=== PATIENT | female | born 1980 | race Hispanic/Latino ===

== ENCOUNTER 2017-01-06 18:01 | Observation (INO) | payer OTHER ==
[2017-01-06] MEDS ORDERED: Sodium Chloride 0.9% 1,000 ML IV ONE (18:14)
--- NOTE | 2017-01-06 18:23 | EDM.PDOC ---
ED HPI Skin/Rash - General Chief Complaint: Skin Complaint Stated Complaint: HAD C SECTION/ INFECTED Time Seen by Provider: 01/06/17 18:15 Source: Reports: Patient History Limitations: Reports: No limitations - History of Present Illness INITIAL COMMENTS - FREE TEXT/NARRATIVE: HISTORY AND PHYSICAL: History of present illness: [Patient comes to the emergency room complaining of purulent discharge, warmth and increased pain to site. She delivered via one live fetus on December [address] Angel at [facility]. She first noticed symptoms 3 days ago which have gradually worsened. She consulted with her handle rounder operator, Dr. Angel, who is in [place], and he recommended she be evaluated in the emergency room. She has had a pad against her incision which has been collecting green colored and bloody discharge. She denies fevers, nausea, vomiting. Occasional chills. She is breast-feeding and bottlefeeding with formula.] Review of systems: As per history of present illness and below otherwise all systems reviewed and negative. Past medical history: As per history of present illness and as reviewed below otherwise noncontributory. Surgical history: As per history of present illness and as reviewed below otherwise noncontributory. Social history: No reported history of drug or alcohol abuse. Family history: As per history of present illness and as reviewed below otherwise noncontributory. Physical exam: HEENT: Atraumatic, normocephalic. Lungs: Clear to auscultation, breath sounds equal bilaterally. Heart: S1S2, regular rate and rhythm. Abdomen: Morbidly obese. Normoactive bowel sounds. Abdomen is soft. Has a large abdominal pannus which hangs over her incision. Left-sided incision is partially open and draining yellow bloody colored discharge. Malodorous. Hematoma appreciated. 1/2 inch of erythema surrounding incision site. Swab of wound is taken for culture. Genitourinary: Deferred. Rectal: Deferred. Extremities: Atraumatic.Neurovascular unremarkable. Neuro: Awake, alert, oriented. Motor and sensory unremarkable throughout. Exam nonfocal. Diagnostics: [CBC, CMP, wound culture] Therapeutics: [IV normal saline 1 L, vancomycin 1 gram, Zosyn 4.5 g IV] Impression: [Abdominal cellulitis status post ] Plan: [Patient's condition is discussed with the hospitalist. She will be admitted under the care of Dr. Gunderson for observation. Patient in agreement with plan of questions are answered and concerns are addressed.] Definitive disposition and diagnosis as appropriate pending reevaluation and review of above. - Related Data Allergies Allergy/AdvReac Type Severity Reaction Status Date / Time No Known Allergies Allergy Verified 01/06/17 18:12 Home Meds: Ambulatory Orders Medication Instructions Recorded Confirmed Ibuprofen 01/06/17 Insulin Lispro [HumaLOG] 01/06/17 Labetalol [Normodyne] 01/06/17 oxyCODONE HCl/Acetaminophen 01/06/17 [Percocet 5-325 mg Tablet] ED ROS GENERAL - Review of Systems Review Of Systems: ROS reveals no pertinent complaints other than HPI. ED EXAM, SKIN/RASH Exam: See Below Course - Vital Signs Last Recorded V/S: Last Vital Signs Temp 98.7 F 01/06/17 20:09 Pulse 57 L 01/06/17 20:09 Resp 18 01/06/17 20:09 BP 152/66 H 01/06/17 20:09 Pulse Ox 98 01/06/17 20:09 - Orders/Labs/Meds Orders: Active Orders 24 hr Category Date Time Status Abdomen Pelvis w Cont [CT] Stat Exams 01/06/17 18:53 Taken Piperacillin/Tazobactam [Piperacil-Tazobact] 4.5 gm Med 01/06/17 20:57 Active Sodium Chloride 0.9% [Normal Saline] 100 ml IV ONETIME Vancomycin [Vancocin] 1 gm Med 01/06/17 20:50 Active Sodium Chloride 0.9% [Normal Saline] 250 ml IV ONETIME Medication Orders Vancomycin HCl 1 gm/ Sodium (Chloride) 250 mls @ 250 mls/hr IV ONETIME ONE Stop: 01/06/17 21:49 Piperacillin Sod/Tazobactam (Sod 4.5 gm/ Sodium Chloride) 100 mls @ 100 mls/hr IV ONETIME ONE Stop: 01/06/17 21:56 Last Admin: 01/06/17 21:06 Dose: 100 mls/hr Labs: Laboratory Tests 01/06/17 01/06/17 Range/Units 18:20 18:20 WBC 10.21 (4.0-11.0) K/uL RBC 3.52 L (4.30-5.90) M/uL Hgb 9.3 L (12.0-16.0) g/dL Hct 29.6 L (36.0-46.0) % MCV 84.1 (80.0-98.0) fL MCH 26.4 L (27.0-32.0) pg MCHC 31.4 (31.0-37.0) g/dL RDW Std Deviation 48.2 (28.0-62.0) fl RDW Coeff of Silvia 16 H (11.0-15.0) % Plt Count 411 H (150-400) K/uL MPV 9.80 (7.40-12.00) fL Add Manual Diff YES Neutrophils % (Manual) 56 (48.0-80.0) % Band Neutrophils % 13 % Lymphocytes % (Manual) 20 (16.0-40.0) % Monocytes % (Manual) 8 (0.0-15.0) % Eosinophils % (Manual) 2 (0.0-7.0) % Basophils % (Manual) 1 (0.0-1.5) % Nucleated RBC % 0.0 /100WBC Absolute Seg Neuts 5.7 Band Neutrophils # 1.3 Lymphocytes # (Manual) 2.0 Monocytes # (Manual) 0.8 Eosinophils # (Manual) 0.2 Basophils # (Manual) 0 Nucleated RBCs # 0 K/uL Sodium 143 (136-146) mmol/L Potassium 4.0 (3.5-5.1) mmol/L Chloride 112 H (98-110) mmol/L Carbon Dioxide 22 (21-31) mmol/L BUN 16 (6.0-23.0) mg/dL Creatinine 0.8 (0.6-1.5) mg/dL Est Cr Clr Drug Dosing 96.18 mL/min Estimated GFR (MDRD) > 60.0 ml/min Glucose 73 (60-110) mg/dL Calcium 8.6 L (8.8-10.8) mg/dL Total Bilirubin 0.8 (0.1-1.5) mg/dL AST 21 (5-40) IU/L ALT 39 (8-54) IU/L Alkaline Phosphatase 85 (40-150) Total Protein 6.4 (6.0-8.0) g/dL Albumin 3.1 L (3.5-5.0) g/dL Globulin 3.3 (2.0-3.5) g/dL Albumin/Globulin Ratio 0.9 L (1.3-2.8) Meds: Medications Generic Name Dose Route Start Last Admin Trade Name Negrita PRN Reason Stop Dose Admin Vancomycin HCl 1 gm/ Sodium 250 mls @ 250 mls/hr 01/06/17 20:50 Chloride IV 01/06/17 21:49 ONETIME ONE Piperacillin Sod/Tazobactam 100 mls @ 100 mls/hr 01/06/17 20:57 01/06/17 21: 06 Sod 4.5 gm/ Sodium Chloride IV 01/06/17 21:56 100 mls/hr ONETIME ONE Administration Discontinued Medications Generic Name Dose Route Start Last Admin Trade Name Freq PRN Reason Stop Dose Admin Sodium Chloride 1,000 mls @ 999 mls/hr 01/06/17 18:14 01/06/17 18:22 Normal Saline IV 01/06/17 19:14 999 mls/hr STAT ONE Administration Departure - Departure Time of Disposition: 21:20 Disposition: Refer to Observation Condition: good Clinical Impression: Cellulitis Qualifiers: Site of cellulitis: other site Qualified Code(s): L03.818 - Cellulitis of other sites - My Orders Last 24 Hours: My Active Orders 01/06/17 18:53 Abdomen Pelvis w Cont [CT] Stat 01/06/17 20:50 Vancomycin [Vancocin] 1 gm Sodium Chloride 0.9% [Normal Saline] 250 ml IV ONETIME 01/06/17 20:57 Piperacillin/Tazobactam [Piperacil-Tazobact] 4.5 gm Sodium Chloride 0.9% [ Normal Saline] 100 ml IV ONETIME - Assessment/Plan Last 24 Hours: My Active Orders 01/06/17 18:53 Abdomen Pelvis w Cont [CT] Stat 01/06/17 20:50 Vancomycin [Vancocin] 1 gm Sodium Chloride 0.9% [Normal Saline] 250 ml IV ONETIME 01/06/17 20:57 Piperacillin/Tazobactam [Piperacil-Tazobact] 4.5 gm Sodium Chloride 0.9% [ Normal Saline] 100 ml IV ONETIME
[2017-01-06 18:47] LABS: CHLORIDE,CL 112 mmol/L (98-110); SODIUM,NA 143 mmol/L (136-146)
[2017-01-06] MEDS ORDERED: Piperacillin/Tazobactam 4.5 GM in Sodium Chloride 0.9% 100 ML IV ONE (20:57)
[2017-01-06] MEDS: Sodium Chloride 0.45% 1,000 ML IV SCH (22:00)
[2017-01-06] MEDS ORDERED: Morphine 2 MG/ML Syringe IVPUSH PRN (22:51)
[2017-01-06] MEDS ORDERED: Ondansetron 4 MG/2 ML SDV IVPUSH PRN (22:57)
[2017-01-06] MEDS ORDERED: Acetaminophen 325 MG Tab PO PRN (23:00)
[2017-01-06] MEDS ORDERED: Labetalol 100 MG Tab PO ONE (23:19)
[2017-01-06] MEDS ORDERED: Insulin Isophane NPH, Human 100 Units/ML 10 ML Vial SUBCUT SCH (23:29)
[2017-01-07] MEDS: Piperacillin/Tazobactam 4.5 GM in Sodium Chloride 0.9% 100 ML IV SCH ×2 (02:26→09:45)
[2017-01-07] MEDS ORDERED: Iopamidol 755 MG/ML 500 ML Multipack Bottle IVPUSH STA (04:53)
[2017-01-07] MEDS ORDERED: Lisinopril 10 MG Tab PO ONE (05:25)
[2017-01-07 05:51] LABS: CHLORIDE,CL 112 mmol/L (98-110); SODIUM,NA 142 mmol/L (136-146)
[2017-01-07] MEDS: Sodium Chloride 0.45% 1,000 ML IV SCH (07:12)
[2017-01-07] MEDS ORDERED: Enoxaparin 40 MG/0.4 ML Syringe SUBCUT SCH (09:00)
[2017-01-07] MEDS ORDERED: INSULIN ISOPHANE SUBCUT SCH (09:00)
[2017-01-07] MEDS ORDERED: Piperacillin/Tazobactam 4.5 GM in Sodium Chloride 0.9% 100 ML IV SCH (09:00)
[2017-01-07] MEDS ORDERED: Vancomycin 1.5 GM in Sodium Chloride 0.9% 500 ML IV SCH ×2 (09:00→10:00)
[2017-01-07] MEDS ORDERED: NPH INSULIN SUBCUT SCH (09:00)
[2017-01-07 09:02] VITALS: BP 179/72
--- NOTE | 2017-01-07 09:32 | PCM.HP ---
<Angelica Gordon - Last Filed: 01/07/17 10:37> H&P History of Present Illness - General Date of Service: 01/07/17 Admit Problem/Dx: Admission Diagnosis/Problem Admission Diagnosis/Problem Cellulitis Source of Information: Patient - History of Present Illness Initial Comments - Free Text/Narative: 36 yo obese female with history of DM 2, HTN admitted for cellulitis. She delivered via on 12/29/16 without complications. 2 days ago she noticed yellow -green foul purulent discharge. She called her OBGYN in [place] and was told to report to the ED. Blood and wound culture taken. Her WBC 10.21, HB 9.3.She was started on vanco and zosyn. She has a history of DM who is on insulin, HTN and AUTUMN. Lower Abdomen Pain Score (Numeric/FACES): 2 - Related Data Allergies/Adverse Reactions: Allergies Allergy/AdvReac Type Severity Reaction Status Date / Time No Known Allergies Allergy Verified 01/06/17 18:12 Home Medications: Home Meds Ibuprofen 800 mg PO Q8H PRN 01/06/17 [History] Labetalol [Normodyne] 200 mg PO BID 01/06/17 [History] Nph, Human Insulin Isophane [HumuLIN N] 100 unit SUBCUT BID 01/06/17 [History] oxyCODONE HCl/Acetaminophen [Percocet 5-325 mg Tablet] 325 mg PO Q4H PRN [History] Past Medical History HEENT History: Reports: None Cardiovascular History: Reports: Hypertension Respiratory History: Reports: None Gastrointestinal History: Reports: None 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: , Other (see below) Other OB/BYN History: Endocrine/Metabolic History: Reports: Diabetes, type II, Obesity/BMI 30+ Hematologic History: Reports: None - Past Surgical History Head Surgeries/Procedures: Reports: None GI Surgical History: Reports: Cholecystectomy Social & Family History - Family History Family Medical History: Noncontributory - Tobacco Use Smoking Status *Q: Current Every Day Smoker Years of Tobacco use: 20 Packs/Tins Daily: 1 Used Tobacco, but Quit: No Second Hand Smoke Exposure: No - Caffeine Use Caffeine Use: Reports: Coffee, Soda Caffeine Use Comment: 1/wk - Recreational Drug Use Recreational Drug Use: No H&P Review of Systems - Review of Systems: Review Of Systems: See Below General: Reports: no symptoms HEENT: Reports: no symptoms Pulmonary: Reports: no symptoms Cardiovascular: Reports: no symptoms Gastrointestinal: Reports: No symptoms Genitourinary: Reports: no symptoms Musculoskeletal: Reports: no symptoms Skin: Reports: erythema, wound, change in color Psychiatric: Reports: no symptoms Neurological: Reports: no symptoms Hematologic/Lymphatic: Reports: no symptoms Immunologic: Reports: no symptoms Exam - Exam Exam: See Below - Vital Signs Vital Signs: Last Vital Signs Temp 98.4 F 01/07/17 08:00 Pulse 53 L 01/07/17 08:00 Resp 22 H 01/07/17 08:00 BP 179/72 H 01/07/17 08:00 Pulse Ox 98 01/07/17 08:00 Weight: 334 lb 8 oz - Exam General: alert, oriented, cooperative HEENT: Conjunctiva clear, EOMI Neck: supple, trachea midline Lungs: Clear to auscultation, Normal respiratory effort Cardiovascular: regular rate, regular rhythm Abdomen: normal bowel sounds, soft Back Exam: normal inspection Extremities: normal inspection Skin: wound, other (necrotic tissue with foul purulent discharge) Neuro Extensive - Mental Status: alert, oriented x3, normal mood/affect - Patient Data Lab Results last 24 hrs: Laboratory Results - last 24 hr 01/07/17 01/07/17 01/07/17 Range/Units 05:20 05:20 06:59 WBC 9.27 (4.0-11.0) K/uL RBC 3.02 L (4.30-5.90) M/uL Hgb 8.3 L (12.0-16.0) g/dL Hct 25.6 L (36.0-46.0) % MCV 84.8 (80.0-98.0) fL MCH 27.5 (27.0-32.0) pg MCHC 32.4 (31.0-37.0) g/dL RDW Std Deviation 49.3 (28.0-62.0) fl RDW Coeff of Silvia 16 H (11.0-15.0) % Plt Count 344 (150-400) K/uL MPV 10.00 (7.40-12.00) fL Neut % (Auto) 67.1 (48.0-80.0) % Lymph % (Auto) 21.4 (16.0-40.0) % [place] % (Auto) 7.2 (0.0-15.0) % Eos % (Auto) 3.9 (0.0-7.0) % Baso % (Auto) 0.4 (0.0-1.5) % Neut # 6.2 H (1.4-5.7) K/uL Lymph # 2.0 (0.6-2.4) K/uL [place] # 0.7 (0.0-0.8) K/uL Eos # 0.4 (0.0-0.7) K/uL Baso # 0.0 (0.0-0.1) K/uL Nucleated RBC % 0.0 /100WBC Nucleated RBCs # 0 K/uL Sodium 142 (136-146) mmol/L Potassium 3.8 (3.5-5.1) mmol/L Chloride 112 H (98-110) mmol/L Carbon Dioxide 19 L (21-31) mmol/L BUN 12 (6.0-23.0) mg/dL Creatinine 0.8 (0.6-1.5) mg/dL Est Cr Clr Drug Dosing 96.18 mL/min Estimated GFR (MDRD) > 60.0 ml/min Glucose 104 (60-110) mg/dL POC Glucose 92 (60-110) mg/dL Calcium 8.2 L (8.8-10.8) mg/dL Total Bilirubin 0.7 (0.1-1.5) mg/dL AST 16 (5-40) IU/L ALT 31 (8-54) IU/L Alkaline Phosphatase 75 (40-150) Total Protein 5.7 L (6.0-8.0) g/dL Albumin 2.8 L (3.5-5.0) g/dL Globulin 2.9 (2.0-3.5) g/dL Albumin/Globulin Ratio 1.0 L (1.3-2.8) Result Diagrams: 01/07/17 05:20 01/07/17 05:20 *Q Meaningful Use (ADM) - VTE *Q VTE Criteria *Q: - Stroke *Q Stroke Criteria *Q: - AMI *Q AMI Criteria *Q: - Problem List (1) Wound abscess SNOMED Code(s): 918140710 ICD Code: T81.4XXA - INFECTION FOLLOWING A PROCEDURE, INITIAL ENCOUNTER Status: Acute Problem List Initiated/Reviewed/Updated: Yes Orders Last 24hrs: Active Orders 24 hr Category Date Time Status Patient Status [ADT] Routine ADT 01/06/17 22:45 Active Accu Check [Blood Glucose Check, Bedside] [RC] Care 01/06/17 23:04 Active QIDACANDBED Activity as Tolerated [RC] .Routine Care 01/06/17 22:52 Active PT Evaluation and Treatment [CONS] Routine Cons 01/07/17 09:08 Active [place] Citizen [employer]abetic [employer] Diet [DIET] Diet 01/07/17 Breakfast Active CULTURE BLOOD [BC] Stat Lab 01/06/17 23:08 Received CULTURE BLOOD [BC] Stat Lab 01/06/17 23:22 Received CULTURE WOUND [RM] Routine Lab 01/06/17 21:05 Received VANCOMYCIN TROUGH [CHEM] Routine Lab 01/08/17 21:30 Ordered Acetaminophen [Tylenol] Med 01/06/17 23:00 Active 650 mg PO Q6H PRN Enoxaparin [Lovenox] Med 01/07/17 09:00 Active 40 mg SUBCUT Q24H Labetalol [Normodyne] Med 01/07/17 21:00 Active 200 mg PO BID Morphine Med 01/06/17 22:51 Active 2 mg IVPUSH Q2H PRN Ondansetron [Zofran] Med 01/06/17 22:57 Active 4 mg IVPUSH Q4H PRN Patient's Own Medication [Ptom] Med 01/07/17 09:00 Active 0 each SUBCUT BID Piperacillin/Tazobactam [Piperacil-Tazobact] 4.5 gm Med 01/07/17 09:00 Active Sodium Chloride 0.9% [Normal Saline] 100 ml IV Q6H Sodium Chloride 0.45% 1,000 ml Med 01/06/17 23:00 Active IV ASDIRECTED Vancomycin 1.5 gm Med 01/07/17 10:00 Active Sodium Chloride 0.9% [Normal Saline] 500 ml IV Q12H Vancomycin Pharmacy to Dose [Pharmacy to Dose - Med 01/06/17 23:00 Active Vancomycin] 1 dose .XX ASDIRECTED Blood Culture x2 Reflex Set [OM.PC] Stat Oth 01/06/17 22:56 Ordered Blood Culture x2 Reflex Set [OM.PC] Stat Oth 01/06/17 23:00 Ordered Medication Orders Acetaminophen (Tylenol) 650 mg PO Q6H PRN PRN Reason: Temperature Last Admin: 01/07/17 02:25 Dose: 650 mg Enoxaparin Sodium (Lovenox) 40 mg SUBCUT Q24H [facility] Sodium Chloride (Sodium Chloride 0.45%) 1,000 mls @ 125 mls/hr IV ASDIRECTED [facility] Last Admin: 01/07/17 07:12 Dose: 125 mls/hr Infusion: 01/07/17 06:00 Dose: 125 mls/hr Admin: 01/06/17 22:00 Dose: 125 mls/hr Piperacillin Sod/Tazobactam (Sod 4.5 gm/ Sodium Chloride) 100 mls @ 100 mls/hr IV Q6H [facility] Vancomycin HCl 1.5 gm/ Sodium (Chloride) 500 mls @ 333.333 mls/hr IV Q12H [facility] Labetalol HCl (Normodyne) 200 mg PO BID [facility] Morphine Sulfate (Morphine) 2 mg IVPUSH Q2H PRN PRN Reason: Abdominal Pain Ondansetron HCl (Zofran) 4 mg IVPUSH Q4H PRN PRN Reason: Nausea/Vomiting Patient's Own Medication 1 Each Nph Insulin Pen 100 Units/Ml 0 each SUBCUT BID [facility] Vancomycin HCl (Pharmacy To Dose - Vancomycin) 1 dose .XX ASDIRECTED [facility] Assessment/Plan Comment:: Cellulitis s/p NPO on zosyn and vanco wound and blood cultures pending consult PT for wound care Pain: morphine DM 2: ISS HTN: on labetolol. Dr. Davenport (OBGYN) consulted. He was kind to see patient right away. He recommended wound exploration and debridement today. <Kurt Gunderson - Last Filed: 01/07/17 20:36> H&P History of Present Illness - General Admit Problem/Dx: Admission Diagnosis/Problem Admission Diagnosis/Problem Cellulitis Exam - Vital Signs Vital Signs: Last Vital Signs Temp 98.4 F 01/07/17 08:00 Pulse 53 L 01/07/17 08:00 Resp 22 H 01/07/17 08:00 BP 179/72 H 01/07/17 08:00 Pulse Ox 98 01/07/17 08:00 - Patient Data Lab Results last 24 hrs: Laboratory Results - last 24 hr 01/07/17 01/07/17 01/07/17 Range/Units 05:20 05:20 06:59 WBC 9.27 (4.0-11.0) K/uL RBC 3.02 L (4.30-5.90) M/uL Hgb 8.3 L (12.0-16.0) g/dL Hct 25.6 L (36.0-46.0) % MCV 84.8 (80.0-98.0) fL MCH 27.5 (27.0-32.0) pg MCHC 32.4 (31.0-37.0) g/dL RDW Std Deviation 49.3 (28.0-62.0) fl RDW Coeff of Silvia 16 H (11.0-15.0) % Plt Count 344 (150-400) K/uL MPV 10.00 (7.40-12.00) fL Neut % (Auto) 67.1 (48.0-80.0) % Lymph % (Auto) 21.4 (16.0-40.0) % [place] % (Auto) 7.2 (0.0-15.0) % Eos % (Auto) 3.9 (0.0-7.0) % Baso % (Auto) 0.4 (0.0-1.5) % Neut # 6.2 H (1.4-5.7) K/uL Lymph # 2.0 (0.6-2.4) K/uL [place] # 0.7 (0.0-0.8) K/uL Eos # 0.4 (0.0-0.7) K/uL Baso # 0.0 (0.0-0.1) K/uL Nucleated RBC % 0.0 /100WBC Nucleated RBCs # 0 K/uL Sodium 142 (136-146) mmol/L Potassium 3.8 (3.5-5.1) mmol/L Chloride 112 H (98-110) mmol/L Carbon Dioxide 19 L (21-31) mmol/L BUN 12 (6.0-23.0) mg/dL Creatinine 0.8 (0.6-1.5) mg/dL Est Cr Clr Drug Dosing 96.18 mL/min Estimated GFR (MDRD) > 60.0 ml/min Glucose 104 (60-110) mg/dL POC Glucose 92 (60-110) mg/dL Calcium 8.2 L (8.8-10.8) mg/dL Total Bilirubin 0.7 (0.1-1.5) mg/dL AST 16 (5-40) IU/L ALT 31 (8-54) IU/L Alkaline Phosphatase 75 (40-150) Total Protein 5.7 L (6.0-8.0) g/dL Albumin 2.8 L (3.5-5.0) g/dL Globulin 2.9 (2.0-3.5) g/dL Albumin/Globulin Ratio 1.0 L (1.3-2.8) Result Diagrams: 01/07/17 05:20 01/07/17 05:20 *Q Meaningful Use (ADM) - VTE *Q VTE Criteria *Q: - Stroke *Q Stroke Criteria *Q: - AMI *Q AMI Criteria *Q: Orders Last 24hrs: Active Orders 24 hr Category Date Time Status Patient Status [ADT] Routine ADT 01/06/17 22:45 Active Accu Check [Blood Glucose Check, Bedside] [RC] Care 01/06/17 23:04 Active QIDACANDBED Activity as Tolerated [RC] .Routine Care 01/06/17 22:52 Active Notify Provider Consults [RC] ASDIRECTED Care 01/07/17 10:16 Active Ready for Discharge [RC] PER UNIT ROUTINE Care 01/07/17 11:15 Active Consult to Physician [CONS] Routine Cons 01/07/17 10:16 Active PT Evaluation and Treatment [CONS] Routine Cons 01/07/17 09:08 Active CULTURE BLOOD [BC] Stat Lab 01/06/17 23:08 Received CULTURE BLOOD [BC] Stat Lab 01/06/17 23:22 Received CULTURE WOUND [RM] Routine Lab 01/06/17 21:05 Received Blood Culture x2 Reflex Set [OM.PC] Stat Oth 01/06/17 22:56 Ordered Blood Culture x2 Reflex Set [OM.PC] Stat Oth 01/06/17 23:00 Ordered Assessment/Plan Comment:: Patient was seen and examined , agree with assessment and plan. Patient was feeling much improved with Iv antibiotics. Afebrile , no leucocytosis . siding stapler. recommended patient transfer to [place] due to her morbid obesity , she is a high risk patient and will require hospitalization for about 12 days post sx. Patient was transferred today to [place].
[2017-01-07] MEDS ORDERED: Sodium Chloride 0.9% 1,000 ML IV ONE (10:40)
[2017-01-07] MEDS ORDERED: Ondansetron 4 MG/2 ML SDV ONE (10:49)
[2017-01-07] MEDS ORDERED: Rocuronium 10 MG/ML 10 ML Syringe ONE (10:49)
[2017-01-07] MEDS ORDERED: Lidocaine 2% 5 ML SDV ONE (10:49)
[2017-01-07] MEDS ORDERED: fentaNYL 250 MCG/5 ML SDV ONE (10:50)
[2017-01-07] MEDS ORDERED: Midazolam 1 MG/ML 2 ML SDV ONE (10:50)
[2017-01-07] MEDS ORDERED: Propofol 200 MG/20 ML SDV ONE ×2 (10:50→11:04)
[2017-01-07] MEDS ORDERED: Succinylcholine/Normal Saline 200 MG/10 ML Syringe IV ONE (10:53)
--- NOTE | 2017-01-07 11:21 | PCM.DCSUM1 ---
<Angelica Gordon - Last Filed: 01/07/17 11:16> Discharge Summary - Hospital Course Free Text/Narrative:: She is transferred to [facility] for wound exploration and debridement. Dr. Davenport (OBGYN) had spoken to Dr. Angel ( OBGYN) and had accepted the transfer via ambulance. Patient had agreed. - Discharge Data Discharge Date: 01/07/17 Discharge Disposition: DC/Tfer to Acute Hospital 02 Condition: Fair - Discharge Diagnosis/Problem(s) (1) Wound abscess SNOMED Code(s): 533699550 ICD Code: T81.4XXA - INFECTION FOLLOWING A PROCEDURE, INITIAL ENCOUNTER Status: Acute - Patient Summary/Data Consults: Consultations 01/07/17 09:08 PT Evaluation and Treatment [CONS] Routine 01/07/17 10:16 Consult to Physician [CONS] Routine - Patient Instructions Diet: NPO Driving: Do Not Drive - Discharge Plan Home Medications: Home Meds Ibuprofen 800 mg PO Q8H PRN 01/06/17 [History] Labetalol [Normodyne] 200 mg PO BID 01/06/17 [History] Nph, Human Insulin Isophane [HumuLIN N] 100 unit SUBCUT BID 01/06/17 [History] oxyCODONE HCl/Acetaminophen [Percocet 5-325 mg Tablet] 325 mg PO Q4H PRN [History] Patient Handouts: Wound Infection, [id number] Referrals: PCP,None [Primary Care Provider] - - General Info Date of Service: 01/07/17 Functional Status: Reports: pain controlled - Review of Systems General: Reports: no symptoms HEENT: Reports: no symptoms Pulmonary: Reports: no symptoms Cardiovascular: Reports: no symptoms Gastrointestinal: Reports: No symptoms Genitourinary: Reports: no symptoms Musculoskeletal: Reports: no symptoms Skin: Reports: other (s/p c-sec wound abscess) Neurological: Reports: no symptoms Psychiatric: Reports: no symptoms - Patient Data Vitals - Most Recent: Last Vital Signs Temp 98.4 F 01/07/17 08:00 Pulse 53 L 01/07/17 08:00 Resp 22 H 01/07/17 08:00 BP 179/72 H 01/07/17 08:00 Pulse Ox 98 01/07/17 08:00 Weight - Most Recent: 334 lb 8 oz I&O - Last 24 hours: Intake & Output 01/06/17 01/07/17 01/07/17 22:59 06:59 14:59 Intake Total 1042 600 Output Total 1100 Balance -58 600 Lab Results - Last 24 hrs: Laboratory Results - last 24 hr 01/07/17 01/07/17 01/07/17 Range/Units 05:20 05:20 06:59 WBC 9.27 (4.0-11.0) K/uL RBC 3.02 L (4.30-5.90) M/uL Hgb 8.3 L (12.0-16.0) g/dL Hct 25.6 L (36.0-46.0) % MCV 84.8 (80.0-98.0) fL MCH 27.5 (27.0-32.0) pg MCHC 32.4 (31.0-37.0) g/dL RDW Std Deviation 49.3 (28.0-62.0) fl RDW Coeff of Silvia 16 H (11.0-15.0) % Plt Count 344 (150-400) K/uL MPV 10.00 (7.40-12.00) fL Neut % (Auto) 67.1 (48.0-80.0) % Lymph % (Auto) 21.4 (16.0-40.0) % Hoke % (Auto) 7.2 (0.0-15.0) % Eos % (Auto) 3.9 (0.0-7.0) % Baso % (Auto) 0.4 (0.0-1.5) % Neut # 6.2 H (1.4-5.7) K/uL Lymph # 2.0 (0.6-2.4) K/uL Hoke # 0.7 (0.0-0.8) K/uL Eos # 0.4 (0.0-0.7) K/uL Baso # 0.0 (0.0-0.1) K/uL Nucleated RBC % 0.0 /100WBC Nucleated RBCs # 0 K/uL Sodium 142 (136-146) mmol/L Potassium 3.8 (3.5-5.1) mmol/L Chloride 112 H (98-110) mmol/L Carbon Dioxide 19 L (21-31) mmol/L BUN 12 (6.0-23.0) mg/dL Creatinine 0.8 (0.6-1.5) mg/dL Est Cr Clr Drug Dosing 96.18 mL/min Estimated GFR (MDRD) > 60.0 ml/min Glucose 104 (60-110) mg/dL POC Glucose 92 (60-110) mg/dL Calcium 8.2 L (8.8-10.8) mg/dL Total Bilirubin 0.7 (0.1-1.5) mg/dL AST 16 (5-40) IU/L ALT 31 (8-54) IU/L Alkaline Phosphatase 75 (40-150) Total Protein 5.7 L (6.0-8.0) g/dL Albumin 2.8 L (3.5-5.0) g/dL Globulin 2.9 (2.0-3.5) g/dL Albumin/Globulin Ratio 1.0 L (1.3-2.8) Med Orders - Current: Current Medications Acetaminophen (Tylenol) 650 mg PO Q6H PRN PRN Reason: Temperature Last Admin: 01/07/17 02:25 Dose: 650 mg Enoxaparin Sodium (Lovenox) 40 mg SUBCUT Q24H [facility] Last Admin: 01/07/17 09:40 Dose: 40 mg Sodium Chloride (Sodium Chloride 0.45%) 1,000 mls @ 125 mls/hr IV ASDIRECTED [facility] Last Admin: 01/07/17 07:12 Dose: 125 mls/hr Piperacillin Sod/Tazobactam (Sod 4.5 gm/ Sodium Chloride) 100 mls @ 100 mls/hr IV Q6H [facility] Last Admin: 01/07/17 09:38 Dose: 100 mls/hr Vancomycin HCl 1.5 gm/ Sodium (Chloride) 500 mls @ 333.333 mls/hr IV Q12H [facility] Last Admin: 01/07/17 10:41 Dose: 333.333 mls/hr Sodium Chloride (Normal Saline) 1,000 mls @ 125 mls/hr IV STAT ONE Stop: 01/07/17 18:39 Last Admin: 01/07/17 10:45 Dose: 125 mls/hr Labetalol HCl (Normodyne) 200 mg PO BID [facility] Morphine Sulfate (Morphine) 2 mg IVPUSH Q2H PRN PRN Reason: Abdominal Pain Ondansetron HCl (Zofran) 4 mg IVPUSH Q4H PRN PRN Reason: Nausea/Vomiting Patient's Own Medication 1 Each Nph Insulin Pen 100 Units/Ml 0 each SUBCUT BID [facility] Last Admin: 01/07/17 09:40 Dose: Not Given Vancomycin HCl (Pharmacy To Dose - Vancomycin) 1 dose .XX ASDIRECTED [facility] Discontinued Medications Fentanyl (Sublimaze) Confirm Administered Dose 250 mcg .ROUTE .STK-MED ONE Stop: 01/07/17 10:51 Sodium Chloride (Normal Saline) 1,000 mls @ 999 mls/hr IV STAT ONE Stop: 01/06/17 19:14 Last Admin: 01/06/17 18:22 Dose: 999 mls/hr Vancomycin HCl 1 gm/ Sodium (Chloride) 250 mls @ 250 mls/hr IV ONETIME ONE Stop: 01/06/17 21:49 Last Admin: 01/06/17 21:55 Dose: 250 mls/hr Piperacillin Sod/Tazobactam (Sod 4.5 gm/ Sodium Chloride) 100 mls @ 100 mls/hr IV ONETIME ONE Stop: 01/06/17 21:56 Last Admin: 01/06/17 21:06 Dose: 100 mls/hr Piperacillin Sod/Tazobactam (Sod 4.5 gm/ Sodium Chloride) 100 mls @ 100 mls/hr IV Q6H [facility] Last Admin: 01/07/17 09:45 Dose: Not Given Vancomycin HCl 1.5 gm/ Sodium (Chloride) 500 mls @ 333.333 mls/hr IV Q12H [facility] Last Admin: 01/07/17 09:45 Dose: Not Given Insulin Aspart (Novolog) 24 unit SUBCUT BID [facility] Insulin Human NPH (Novolin N) 100 unit SUBCUT BID [facility] Last Admin: 01/07/17 00:06 Dose: Not Given Iopamidol (Isovue Multipack-370 (76%)) 100 ml IVPUSH ONETIME STA Stop: 01/07/17 04:54 Last Admin: 01/07/17 04:59 Dose: 100 ml Labetalol HCl (Normodyne) 200 mg PO ONETIME ONE Stop: 01/06/17 23:20 Last Admin: 01/07/17 00:03 Dose: 200 mg Lidocaine (Xylocaine-Mpf 2%) Confirm Administered Dose 5 ml .ROUTE .STK-MED ONE Stop: 01/07/17 10:50 Lisinopril (Prinivil) 10 mg PO ONETIME ONE Stop: 01/07/17 05:26 Last Admin: 01/07/17 05:42 Dose: 10 mg Midazolam HCl (Versed 1 Mg/Ml) Confirm Administered Dose 2 mg .ROUTE .STK-MED ONE Stop: 01/07/17 10:51 Ondansetron HCl (Zofran) Confirm Administered Dose 4 mg .ROUTE .STK-MED ONE Stop: 01/07/17 10:50 Patient's Own Medication 1 Each Nph Insulin Pen 0 each SUBCUT BID LINDSEY Propofol (Diprivan 20 Ml) Confirm Administered Dose 200 mg .ROUTE .STK-MED ONE Stop: 01/07/17 10:51 Propofol (Diprivan 20 Ml) Confirm Administered Dose 200 mg .ROUTE .STK-MED ONE Stop: 01/07/17 11:05 Rocuronium [place] (Zemuron) Confirm Administered Dose 100 mg .ROUTE .STK-MED ONE Stop: 01/07/17 10:50 Succinylcholine Chloride (Succinylcholine In Ns Pf) 200 mg IV .STK-MED ONE Stop: 01/07/17 10:54 - Exam General: Reports: alert, oriented HEENT: Reports: Pupils equal, EOMI Neck: Reports: supple, trachea midline Lungs: Reports: Clear to auscultation, Normal respiratory effort Cardiovascular: Reports: regular rate, regular rhythm Abdomen: Reports: bowel sounds present, soft Back Exam: Reports: normal inspection Extremities: Reports: no edema Skin: Reports: other (Nectrotic dark wound with foul discharge and purulence) Neurological: Reports: no new focal deficit Psy/Mental Status: Reports: alert, normal affect, normal mood *Q Meaningful Use (DIS) - VTE *Q VTE Criteria *Q: - Stroke *Q Stroke Criteria *Q: - AMI *Q AMI Criteria *Q: <Kurt Gunderson - Last Filed: 01/07/17 20:38> Discharge Summary - Hospital Course Free Text/Narrative:: Patient seen and examined, dw resident , visual inspector attending , agree with discharge - Patient Summary/Data Consults: Consultations 01/07/17 09:08 PT Evaluation and Treatment [CONS] Routine 01/07/17 10:16 Consult to Physician [CONS] Routine - Patient Data Vitals - Most Recent: Last Vital Signs Temp 98.4 F 01/07/17 08:00 Pulse 53 L 01/07/17 08:00 Resp 22 H 01/07/17 08:00 BP 179/72 H 01/07/17 08:00 Pulse Ox 98 01/07/17 08:00 I&O - Last 24 hours: Intake & Output 01/07/17 01/07/17 01/07/17 06:59 14:59 22:59 Intake Total 1042 1000 Output Total 1100 800 Balance -58 200 Lab Results - Last 24 hrs: Laboratory Results - last 24 hr 01/07/17 01/07/17 01/07/17 Range/Units 05:20 05:20 06:59 WBC 9.27 (4.0-11.0) K/uL RBC 3.02 L (4.30-5.90) M/uL Hgb 8.3 L (12.0-16.0) g/dL Hct 25.6 L (36.0-46.0) % MCV 84.8 (80.0-98.0) fL MCH 27.5 (27.0-32.0) pg MCHC 32.4 (31.0-37.0) g/dL RDW Std Deviation 49.3 (28.0-62.0) fl RDW Coeff of Silvia 16 H (11.0-15.0) % Plt Count 344 (150-400) K/uL MPV 10.00 (7.40-12.00) fL Neut % (Auto) 67.1 (48.0-80.0) % Lymph % (Auto) 21.4 (16.0-40.0) % Hoke % (Auto) 7.2 (0.0-15.0) % Eos % (Auto) 3.9 (0.0-7.0) % Baso % (Auto) 0.4 (0.0-1.5) % Neut # 6.2 H (1.4-5.7) K/uL Lymph # 2.0 (0.6-2.4) K/uL Hoke # 0.7 (0.0-0.8) K/uL Eos # 0.4 (0.0-0.7) K/uL Baso # 0.0 (0.0-0.1) K/uL Nucleated RBC % 0.0 /100WBC Nucleated RBCs # 0 K/uL Sodium 142 (136-146) mmol/L Potassium 3.8 (3.5-5.1) mmol/L Chloride 112 H (98-110) mmol/L Carbon Dioxide 19 L (21-31) mmol/L BUN 12 (6.0-23.0) mg/dL Creatinine 0.8 (0.6-1.5) mg/dL Est Cr Clr Drug Dosing 96.18 mL/min Estimated GFR (MDRD) > 60.0 ml/min Glucose 104 (60-110) mg/dL POC Glucose 92 (60-110) mg/dL Calcium 8.2 L (8.8-10.8) mg/dL Total Bilirubin 0.7 (0.1-1.5) mg/dL AST 16 (5-40) IU/L ALT 31 (8-54) IU/L Alkaline Phosphatase 75 (40-150) Total Protein 5.7 L (6.0-8.0) g/dL Albumin 2.8 L (3.5-5.0) g/dL Globulin 2.9 (2.0-3.5) g/dL Albumin/Globulin Ratio 1.0 L (1.3-2.8) Med Orders - Current: Current Medications Discontinued Medications Acetaminophen (Tylenol) 650 mg PO Q6H PRN PRN Reason: Temperature Last Admin: 01/07/17 02:25 Dose: 650 mg Enoxaparin Sodium (Lovenox) 40 mg SUBCUT Q24H [facility] Last Admin: 01/07/17 09:40 Dose: 40 mg Fentanyl (Sublimaze) Confirm Administered Dose 250 mcg .ROUTE .STK-MED ONE Stop: 01/07/17 10:51 Sodium Chloride (Normal Saline) 1,000 mls @ 999 mls/hr IV STAT ONE Stop: 01/06/17 19:14 Last Admin: 01/06/17 18:22 Dose: 999 mls/hr Vancomycin HCl 1 gm/ Sodium (Chloride) 250 mls @ 250 mls/hr IV ONETIME ONE Stop: 01/06/17 21:49 Last Admin: 01/06/17 21:55 Dose: 250 mls/hr Piperacillin Sod/Tazobactam (Sod 4.5 gm/ Sodium Chloride) 100 mls @ 100 mls/hr IV ONETIME ONE Stop: 01/06/17 21:56 Last Admin: 01/06/17 21:06 Dose: 100 mls/hr Piperacillin Sod/Tazobactam (Sod 4.5 gm/ Sodium Chloride) 100 mls @ 100 mls/hr IV Q6H [facility] Last Admin: 01/07/17 09:45 Dose: Not Given Sodium Chloride (Sodium Chloride 0.45%) 1,000 mls @ 125 mls/hr IV ASDIRECTED [facility] Last Admin: 01/07/17 07:12 Dose: 125 mls/hr Vancomycin HCl 1.5 gm/ Sodium (Chloride) 500 mls @ 333.333 mls/hr IV Q12H [facility] Last Admin: 01/07/17 09:45 Dose: Not Given Piperacillin Sod/Tazobactam (Sod 4.5 gm/ Sodium Chloride) 100 mls @ 100 mls/hr IV Q6H [facility] Last Admin: 01/07/17 09:38 Dose: 100 mls/hr Vancomycin HCl 1.5 gm/ Sodium (Chloride) 500 mls @ 333.333 mls/hr IV Q12H [facility] Last Admin: 01/07/17 10:41 Dose: 333.333 mls/hr Sodium Chloride (Normal Saline) 1,000 mls @ 125 mls/hr IV STAT ONE Stop: 01/07/17 18:39 Last Admin: 01/07/17 10:45 Dose: 125 mls/hr Insulin Aspart (Novolog) 24 unit SUBCUT BID [facility] Insulin Human NPH (Novolin N) 100 unit SUBCUT BID [facility] Last Admin: 01/07/17 00:06 Dose: Not Given Iopamidol (Isovue Multipack-370 (76%)) 100 ml IVPUSH ONETIME STA Stop: 01/07/17 04:54 Last Admin: 01/07/17 04:59 Dose: 100 ml Labetalol HCl (Normodyne) 200 mg PO BID [facility] Labetalol HCl (Normodyne) 200 mg PO ONETIME ONE Stop: 01/06/17 23:20 Last Admin: 01/07/17 00:03 Dose: 200 mg Lidocaine (Xylocaine-Mpf 2%) Confirm Administered Dose 5 ml .ROUTE .STK-MED ONE Stop: 01/07/17 10:50 Lisinopril (Prinivil) 10 mg PO ONETIME ONE Stop: 01/07/17 05:26 Last Admin: 01/07/17 05:42 Dose: 10 mg Midazolam HCl (Versed 1 Mg/Ml) Confirm Administered Dose 2 mg .ROUTE .STK-MED ONE Stop: 01/07/17 10:51 Morphine Sulfate (Morphine) 2 mg IVPUSH Q2H PRN PRN Reason: Abdominal Pain Ondansetron HCl (Zofran) 4 mg IVPUSH Q4H PRN PRN Reason: Nausea/Vomiting Ondansetron HCl (Zofran) Confirm Administered Dose 4 mg .ROUTE .STK-MED ONE Stop: 01/07/17 10:50 Patient's Own Medication 1 Each Nph Insulin Pen 0 each SUBCUT BID [facility] Patient's Own Medication 1 Each Nph Insulin Pen 100 Units/Ml 0 each SUBCUT BID [facility] Last Admin: 01/07/17 09:40 Dose: Not Given Propofol (Diprivan 20 Ml) Confirm Administered Dose 200 mg .ROUTE .STK-MED ONE Stop: 01/07/17 10:51 Propofol (Diprivan 20 Ml) Confirm Administered Dose 200 mg .ROUTE .STK-MED ONE Stop: 01/07/17 11:05 Rocuronium [place] (Zemuron) Confirm Administered Dose 100 mg .ROUTE .STK-MED ONE Stop: 01/07/17 10:50 Succinylcholine Chloride (Succinylcholine In Ns Pf) 200 mg IV .STK-MED ONE Stop: 01/07/17 10:54 Vancomycin HCl (Pharmacy To Dose - Vancomycin) 1 dose .XX ASDIRECTED [facility] *Q Meaningful Use (DIS) - VTE *Q VTE Criteria *Q: - Stroke *Q Stroke Criteria *Q: - AMI *Q AMI Criteria *Q:
--- NOTE | 2017-01-07 14:54 | CT ---
EXAM DATE: 01/06/17 PATIENT'S AGE: 36 Patient: RADHA CHUNG Facility: [place], [place] Site . Site : 1980 Study: CT Abdomen/Pelvis [id number]/8/2017 8:08:41 PM Ordering Physician: Doctor Rodriguez Final Report: HISTORY: Redness and discharge at incision site. Malodorous. 29 December 2016. TECHNIQUE: The abdomen and pelvis were scanned using helical technique at 3 mm after 100 cc of Isovue-370. Delayed images of the pelvis were obtained. Sagittal and coronal reconstructions were performed. FINDINGS: Lung bases: There is small amount of patchy infiltrate in the right lower lobe with a small right pleural effusion. There is a trace left pleural effusion. Liver and gallbladder: The liver is enlarged measuring 25.7 cm in length. The liver is homogeneous in density. Status post cholecystectomy. Spleen, pancreas and adrenal glands: Unremarkable. Kidneys and bladder: Symmetric nephrograms without hydronephrosis. There is a right-sided pelvic phlebolith present. Delayed images demonstrate some excreted contrast within both ureters. The bladder is free of filling defect. Retroperitoneum and lymph nodes: Abdominal aorta is normal in caliber. No pathologic dalia aortic a pelvic sidewall lymphadenopathy is seen. GI tract: The stomach is within limits. No dilated small bowel loops are seen. There is a stone gas the colon. The is no free air in the abdomen. There is no free fluid in the pelvis. Pelvic organs: The uterus remains generous in size at 18.4 cm in height consistent with uterus. Abdominal wall: There is increased density seen within the subcutaneous soft tissues of the pannus. Superficial to the pubic bone and the anterior abdominal wall below the pannus is a 16.5 x 6.2 x 9.2 cm focus of poorly defined increased density with a few bubbles of air. Osseous structures: No suspicious lytic or blastic mm seen. IMPRESSION: 1. Small amount of patchy infiltrate in the right lung base with small right pleural effusion and trace left pleural effusion. 2. Hepatomegaly. 3. Enlarged uterus consistent with state. 4. Increased density subcutaneous fat of the pannus most consistent with edema or cellulitis. 5. 16.5 cm rounded poorly defined focus of increased density seen in the in the soft tissues of the lower pelvis superficial to the abdominal wall fascia and pubic bone. This is poorly defined and has a few bubbles of air. This does not have the typical low density center of an abscess may represent atypical abscess , phlegmon or superinfected hematoma. This appears to be just below the incision line. Dictated by Linda Peterson MD @ 01/06/2017 8:28:34 PM Dictated by: Linda Peterson MD @ 01/06/2017 20:29:09 (Electronic Signature) Report Signed by Proxy and Original Signed Document filed in the Medical Record. MTDD
[2017-01-07] MEDS ORDERED: Labetalol 100 MG Tab PO SCH (21:00)
[2017-01-07] MEDS ORDERED: Insulin Aspart 100 Units/ML 3 ML Pen SUBCUT SCH (21:00)
== END 2017-01-07 12:30 ==
LOC: MW.ED 18:01 → MW.MS 20:58
PROVIDERS: ADMIT Internal Medicine; ATTEND Internal Medicine
DX: O86.0 Infection of obstetric surgical wound (principal); I10 Essential (primary) hypertension; E11.9 Type 2 diabetes mellitus without complications; E66.9 Obesity, unspecified; Z68.30 Body mass index [BMI] 30.0-30.9, adult; F17.200 Nicotine dependence, unspecified, uncomplicated
CPT/HCPCS: 36415; 74177; 80053; 82962; 85025; 87040; 87070; 96361; 96365; 99284; A9270; J1650; J1815; J2543; J3370; J7030; J7040; J7050; Q9967; 87077; 87186; 96366; 96367; 96375; 99285; G0378; J2250; J2405; J2704; J3010

== ENCOUNTER 2017-04-23 22:04 | Emergency (ER) | payer SELFPAY ==
[2017-04-23] MEDS ORDERED: Sodium Chloride 0.9% 1,000 ML IV ONE (22:09)
--- NOTE | 2017-04-23 22:16 | EDM.PDOC ---
ED HPI GENERAL MEDICAL PROBLEM - General Chief Complaint: Chest Pain Stated Complaint: PT HAS CHEST PAINS Time Seen by Provider: 04/24/17 00:58 - History of Present Illness INITIAL COMMENTS - FREE TEXT/NARRATIVE: HISTORY AND PHYSICAL: History of present illness: Patient 37-year-old white female presents with a concern of left-sided chest pain and general malaise patient had a complicated with a postoperative course that included infection she is concerned about possible recurrence she denies fever chills nausea vomiting she's had no abdominal pain no associated shortness of breath or other concern she is quite anxious upon arrival Review of systems: As per history of present illness and below otherwise all systems reviewed and negative. Past medical history: As per history of present illness and as reviewed below otherwise noncontributory. Surgical history: As per history of present illness and as reviewed below otherwise noncontributory. Social history: No reported history of drug or alcohol abuse. Family history: As per history of present illness and as reviewed below otherwise noncontributory. Physical exam: HEENT: Atraumatic, normocephalic, pupils reactive, negative for conjunctival pallor or scleral icterus, mucous membranes moist, throat clear, neck supple, nontender, trachea midline. Lungs: Clear to auscultation, breath sounds equal bilaterally, chest nontender. Heart: S1S2, regular, negative for clicks, rubs, or JVD. Abdomen: Soft, nondistended, nontender. Negative for masses or hepatosplenomegaly. Negative for costovertebral tenderness. Pelvis: Stable nontender. Genitourinary: Deferred. Rectal: Deferred. Extremities: Atraumatic, negative for cords or calf pain. Neurovascular unremarkable. Neuro: Awake, alert, oriented. Cranial nerves II through XII unremarkable. Cerebellum unremarkable. Motor and sensory unremarkable throughout. Exam nonfocal. Diagnostics: CBC CMP troponin PT/INR blood culture 2 lactic acid UA chest x-ray Therapeutics: IV O2 monitor Impression: #1 atypical chest pain Definitive disposition and diagnosis as appropriate pending reevaluation and review of above. - Related Data Allergies Allergy/AdvReac Type Severity Reaction Status Date / Time No Known Allergies Allergy Verified 01/06/17 18:12 Home Meds: Home Meds Ibuprofen 800 mg PO Q8H PRN 01/06/17 [History] Nph, Human Insulin Isophane [HumuLIN N] 100 unit SUBCUT BID 01/06/17 [History] Losartan [Cozaar] 200 mg PO BID 04/23/17 [History] Past Medical History HEENT History: Reports: None Cardiovascular History: Reports: Hypertension Respiratory History: Reports: None Gastrointestinal History: Reports: None P[employer] History: Reports: Other OB/BYN History: Endocrine/Metabolic History: Reports: Diabetes, Type II, Obesity/BMI 30+ Hematologic History: Reports: None - Past Surgical History Female Surgical History: Reports: Section Social & Family History - Family History Family Medical History: Noncontributory - Tobacco Use Smoking Status *Q: Current Every Day Smoker Years of Tobacco use: 20 Packs/Tins Daily: 1 Used Tobacco, but Quit: No Second Hand Smoke Exposure: No - Caffeine Use Caffeine Use: Reports: Coffee, Soda Caffeine Use Comment: 1/wk - Recreational Drug Use Recreational Drug Use: No ED ROS GENERAL - Review of Systems Review Of Systems: ROS reveals no pertinent complaints other than HPI. ED EXAM, GENERAL - Physical Exam Exam: See Below (See dictation) Course - Vital Signs Last Recorded V/S: Last Vital Signs Temp 36.4 C 04/24/17 00:29 Pulse 76 04/23/17 23:57 Resp 20 04/24/17 00:29 BP 181/81 H 04/24/17 00:29 Pulse Ox 100 04/24/17 00:29 - Orders/Labs/Meds Orders: Active Orders 24 hr Category Date Time Status Cardiac Monitoring [RC] . DIRECTED Care 04/23/17 22:08 Active EKG Documentation Completion [RC] STAT Care 04/23/17 22:08 Active Pulse Oximetry [RC] ASDIRECTED Care 04/23/17 22:09 Active Chest 1V Frontal [CR] Stat Exams 04/23/17 22:10 Taken Head wo Cont [CT] Stat Exams 04/24/17 00:20 Taken CULTURE BLOOD [BC] Stat Lab 04/23/17 22:18 Results CULTURE BLOOD [BC] Stat Lab 04/23/17 22:25 Received Blood Culture x2 Reflex Set [OM.PC] Stat Oth 04/23/17 22:09 Ordered Labs: Laboratory Tests 04/23/17 04/23/17 04/23/17 Range/Units 22:25 22:25 22:25 WBC 8.64 (4.0-11.0) K/uL RBC 4.73 (4.30-5.90) M/uL Hgb 13.0 (12.0-16.0) g/dL Hct 38.0 (36.0-46.0) % MCV 80.3 (80.0-98.0) fL MCH 27.5 (27.0-32.0) pg MCHC 34.2 (31.0-37.0) g/dL RDW Std Deviation 44.3 (28.0-62.0) fl RDW Coeff of Silvia 15 (11.0-15.0) % Plt Count 218 (150-400) K/uL MPV 11.10 (7.40-12.00) fL Neut % (Auto) 53.1 (48.0-80.0) % Lymph % (Auto) 38.5 (16.0-40.0) % [place] % (Auto) 6.0 (0.0-15.0) % Eos % (Auto) 2.2 (0.0-7.0) % Baso % (Auto) 0.2 (0.0-1.5) % Neut # (Auto) 4.6 (1.4-5.7) K/uL Lymph # (Auto) 3.3 H (0.6-2.4) K/uL [place] # (Auto) 0.5 (0.0-0.8) K/uL Eos # (Auto) 0.2 (0.0-0.7) K/uL Baso # (Auto) 0.0 (0.0-0.1) K/uL Nucleated RBC % 0.0 /100WBC Nucleated RBCs # 0 K/uL INR 0.98 (0.86-1.11) D-Dimer, Quantitative 0.31 (0.0-0.52) mg/LFEU Lactate 1.2 (0.20-2.00) mmol/L Sodium (136-146) mmol/L Potassium (3.5-5.1) mmol/L Chloride (98-110) mmol/L Carbon Dioxide (21-31) mmol/L BUN (6.0-23.0) mg/dL Creatinine (0.6-1.5) mg/dL Est Cr Clr Drug Dosing mL/min Estimated GFR (MDRD) ml/min Glucose (60-110) mg/dL Calcium (8.8-10.8) mg/dL Total Bilirubin (0.1-1.5) mg/dL AST (5-40) IU/L ALT (8-54) IU/L Alkaline Phosphatase (40-150) Troponin I (0.0-0.29) NG/ML Total Protein (6.0-8.0) g/dL Albumin (3.5-5.0) g/dL Globulin (2.0-3.5) g/dL Albumin/Globulin Ratio (1.3-2.8) HCG, Qual (NEG) Urine Color Urine Appearance Urine pH (5.0-8.0) Ur Specific [place] (1.001-1.035) Urine Protein (NEGATIVE) mg/dL Urine Glucose (UA) (NEGATIVE) mg/dL Urine Ketones (NEGATIVE) mg/dL Urine Occult Blood (NEGATIVE) Urine Nitrite (NEGATIVE) Urine Bilirubin (NEGATIVE) Urine Urobilinogen (<2.0) EU/dL Ur Leukocyte Esterase (NEGATIVE) Urine RBC (0-2/HPF) Urine WBC (0-5/HPF) Ur Epithelial Cells (NONE-FEW) Urine Bacteria (NEGATIVE) 04/23/17 04/23/17 04/23/17 Range/Units 22:25 22:25 22:25 WBC (4.0-11.0) K/uL RBC (4.30-5.90) M/uL Hgb (12.0-16.0) g/dL Hct (36.0-46.0) % MCV (80.0-98.0) fL MCH (27.0-32.0) pg MCHC (31.0-37.0) g/dL RDW Std Deviation (28.0-62.0) fl RDW Coeff of Silvia (11.0-15.0) % Plt Count (150-400) K/uL MPV (7.40-12.00) fL Neut % (Auto) (48.0-80.0) % Lymph % (Auto) (16.0-40.0) % [place] % (Auto) (0.0-15.0) % Eos % (Auto) (0.0-7.0) % Baso % (Auto) (0.0-1.5) % Neut # (Auto) (1.4-5.7) K/uL Lymph # (Auto) (0.6-2.4) K/uL [place] # (Auto) (0.0-0.8) K/uL Eos # (Auto) (0.0-0.7) K/uL Baso # (Auto) (0.0-0.1) K/uL Nucleated RBC % /100WBC Nucleated RBCs # K/uL INR (0.86-1.11) D-Dimer, Quantitative (0.0-0.52) mg/LFEU Lactate (0.20-2.00) mmol/L Sodium 140 (136-146) mmol/L Potassium 4.0 (3.5-5.1) mmol/L Chloride 109 (98-110) mmol/L Carbon Dioxide 23 (21-31) mmol/L BUN 13 (6.0-23.0) mg/dL Creatinine 0.9 (0.6-1.5) mg/dL Est Cr Clr Drug Dosing 84.66 mL/min Estimated GFR (MDRD) > 60.0 ml/min Glucose 140 H (60-110) mg/dL Calcium 8.9 (8.8-10.8) mg/dL Total Bilirubin 0.3 (0.1-1.5) mg/dL AST 13 (5-40) IU/L ALT 20 (8-54) IU/L Alkaline Phosphatase 79 (40-150) Troponin I < 0.10 (0.0-0.29) NG/ML Total Protein 7.1 (6.0-8.0) g/dL Albumin 3.8 (3.5-5.0) g/dL Globulin 3.3 (2.0-3.5) g/dL Albumin/Globulin Ratio 1.2 L (1.3-2.8) HCG, Qual NEGATIVE (NEG) Urine Color Urine Appearance Urine pH (5.0-8.0) Ur Specific [place] (1.001-1.035) Urine Protein (NEGATIVE) mg/dL Urine Glucose (UA) (NEGATIVE) mg/dL Urine Ketones (NEGATIVE) mg/dL Urine Occult Blood (NEGATIVE) Urine Nitrite (NEGATIVE) Urine Bilirubin (NEGATIVE) Urine Urobilinogen (<2.0) EU/dL Ur Leukocyte Esterase (NEGATIVE) Urine RBC (0-2/HPF) Urine WBC (0-5/HPF) Ur Epithelial Cells (NONE-FEW) Urine Bacteria (NEGATIVE) 04/23/17 Range/Units 22:50 WBC (4.0-11.0) K/uL RBC (4.30-5.90) M/uL Hgb (12.0-16.0) g/dL Hct (36.0-46.0) % MCV (80.0-98.0) fL MCH (27.0-32.0) pg MCHC (31.0-37.0) g/dL RDW Std Deviation (28.0-62.0) fl RDW Coeff of Silvia (11.0-15.0) % Plt Count (150-400) K/uL MPV (7.40-12.00) fL Neut % (Auto) (48.0-80.0) % Lymph % (Auto) (16.0-40.0) % [place] % (Auto) (0.0-15.0) % Eos % (Auto) (0.0-7.0) % Baso % (Auto) (0.0-1.5) % Neut # (Auto) (1.4-5.7) K/uL Lymph # (Auto) (0.6-2.4) K/uL [place] # (Auto) (0.0-0.8) K/uL Eos # (Auto) (0.0-0.7) K/uL Baso # (Auto) (0.0-0.1) K/uL Nucleated RBC % /100WBC Nucleated RBCs # K/uL INR (0.86-1.11) D-Dimer, Quantitative (0.0-0.52) mg/LFEU Lactate (0.20-2.00) mmol/L Sodium (136-146) mmol/L Potassium (3.5-5.1) mmol/L Chloride (98-110) mmol/L Carbon Dioxide (21-31) mmol/L BUN (6.0-23.0) mg/dL Creatinine (0.6-1.5) mg/dL Est Cr Clr Drug Dosing mL/min Estimated GFR (MDRD) ml/min Glucose (60-110) mg/dL Calcium (8.8-10.8) mg/dL Total Bilirubin (0.1-1.5) mg/dL AST (5-40) IU/L ALT (8-54) IU/L Alkaline Phosphatase (40-150) Troponin I (0.0-0.29) NG/ML Total Protein (6.0-8.0) g/dL Albumin (3.5-5.0) g/dL Globulin (2.0-3.5) g/dL Albumin/Globulin Ratio (1.3-2.8) HCG, Qual (NEG) Urine Color YELLOW Urine Appearance SLT CLOUDY Urine pH 6.0 (5.0-8.0) Ur Specific [place] 1.025 (1.001-1.035) Urine Protein NEGATIVE (NEGATIVE) mg/dL Urine Glucose (UA) NEGATIVE (NEGATIVE) mg/dL Urine Ketones NEGATIVE (NEGATIVE) mg/dL Urine Occult Blood LARGE H (NEGATIVE) Urine Nitrite NEGATIVE (NEGATIVE) Urine Bilirubin NEGATIVE (NEGATIVE) Urine Urobilinogen 0.2 (<2.0) EU/dL Ur Leukocyte Esterase NEGATIVE (NEGATIVE) Urine RBC 0-4 (0-2/HPF) Urine WBC 0-4 (0-5/HPF) Ur Epithelial Cells MODERATE (NONE-FEW) Urine Bacteria FEW (NEGATIVE) Meds: Medications Discontinued Medications Generic Name Dose Route Start Last Admin Trade Name Negrita PRN Reason Stop Dose Admin Hydralazine HCl 10 mg 04/23/17 23:21 04/23/17 23:27 Apresoline IVPUSH 04/23/17 23:22 10 mg ONETIME ONE Administration Hydralazine HCl 10 mg 04/24/17 00:19 04/24/17 00:26 Apresoline IVPUSH 04/24/17 00:20 10 mg ONETIME ONE Administration Sodium Chloride 1,000 mls @ 999 mls/hr 04/23/17 22:09 04/23/17 22:29 Normal Saline IV 04/23/17 23:09 999 mls/hr STAT ONE Administration Departure - Departure Time of Disposition: 00:58 Disposition: Home, Self-Care 01 Condition: Good Clinical Impression: Atypical chest pain, Hypertension - Discharge Information Forms: ED Department Discharge Additional Instructions: The following information is given to patients seen in the emergency department who are being discharged to home. This information is to outline your options for follow-up care. We provide all patients seen in our emergency department with a follow-up referral. The need for follow-up, as well as the timing and circumstances, are variable depending upon the specifics of your emergency department visit. If you don't have a primary care physician on staff, we will provide you with a referral. We always advise you to contact your personal physician following an emergency department visit to inform them of the circumstance of the visit and for follow-up with them and/or the need for any referrals to a consulting specialist. The emergency department will also refer you to a specialist when appropriate. This referral assures that you have the opportunity for followup care with a specialist. All of these measure are taken in an effort to provide you with optimal care, which includes your followup. Under all circumstances we always encourage you to contact your private physician who remains a resource for coordinating your care. When calling for followup care, please make the office aware that this follow-up is from your recent emergency room visit. If for any reason you are refused follow-up, please contact the [facility] emergency department at and asked to speak to the emergency department charge nurse. Follow-up primary medical doctor when 2 days continue current medications return as needed as discussed - My Orders Last 24 Hours: My Active Orders 04/23/17 22:08 Cardiac Monitoring [RC] . DIRECTED EKG Documentation Completion [RC] STAT 04/23/17 22:09 Pulse Oximetry [RC] ASDIRECTED Blood Culture x2 Reflex Set [OM.PC] Stat 04/23/17 22:10 Chest 1V Frontal [CR] Stat 04/23/17 22:18 CULTURE BLOOD [BC] Stat 04/23/17 22:25 CULTURE BLOOD [BC] Stat 04/24/17 00:20 Head wo Cont [CT] Stat - Assessment/Plan Last 24 Hours: My Active Orders 04/23/17 22:08 Cardiac Monitoring [RC] . DIRECTED EKG Documentation Completion [RC] STAT 04/23/17 22:09 Pulse Oximetry [RC] ASDIRECTED Blood Culture x2 Reflex Set [OM.PC] Stat 04/23/17 22:10 Chest 1V Frontal [CR] Stat 04/23/17 22:18 CULTURE BLOOD [BC] Stat 04/23/17 22:25 CULTURE BLOOD [BC] Stat 04/24/17 00:20 Head wo Cont [CT] Stat
[2017-04-23 22:54] LABS: CHLORIDE,CL 109 mmol/L (98-110); SODIUM,NA 140 mmol/L (136-146)
[2017-04-23] MEDS ORDERED: hydrALAZINE 20 MG/ML SDV IVPUSH ONE (23:21)
[2017-04-24] MEDS ORDERED: hydrALAZINE 20 MG/ML SDV IVPUSH ONE (00:19)
[2017-04-24 00:59] VITALS: BP 166/79
--- NOTE | 2017-04-26 10:13 | CR ---
EXAM DATE: 04/23/17 PATIENT'S AGE: 37 Patient: RADHA CHUNG Facility: [place], [place] Site . Site : 1980 Study: XRay Chest [id number]/[id number] 11:08:13 PM Ordering Physician: Doctor Rodriguez Final Report: INDICATION: Chest pain. TECHNIQUE: Chest radiograph 1 view COMPARISON: None FINDINGS: Cardiovascular and mediastinum: The heart silhouette is normal in size and morphology. The mediastinum is normal in appearance. Lungs and pleural spaces: Both lungs are unremarkable in appearance. No sign of pleural effusion seen. No pneumothorax is identified. Bones and soft tissues: No significant findings. IMPRESSION: 1. No acute cardiopulmonary disease is seen. Dictated by Los Reyes MD @ 04/23/2017 11:30:38 PM Dictated by: Los Reeys MD @ 04/23/2017 23:30:45 (Electronic Signature) Report Signed by Proxy. [email or web address]
--- NOTE | 2017-04-26 10:17 | CT ---
EXAM DATE: 04/23/17 PATIENT'S AGE: 37 Patient: RADHA CHUNG Facility: [place], [place] Site . Site : 1980 Study: CT Head WO CONT [id number] 12:43:21 AM Ordering Physician: Jyothi Forrest Final Report: INDICATION: Headache. TECHNIQUE: CT head without i.v. contrast. COMPARISON: None FINDINGS: CSF spaces: Within normal limits for age. Brain parenchyma: The brain parenchyma is normal in appearance with preservation of the martinez-white differentiation. No sign of mass, hemorrhage, or midline shift seen. Skull base and calvarium: The visualized paranasal sinuses are well aerated. The mastoid air cells are clear. The visualized orbits are grossly unremarkable. No skull fractures are seen. IMPRESSION: 1. No evidence of acute infarction, intracranial hemorrhage, or mass effect seen. Dictated by Los Reyes MD @ 04/24/2017 12:51:47 AM Dictated by: Los Reyes MD @ 04/24/2017 00:51:53 (Electronic Signature) Report Signed by Proxy. [facility]
== END 2017-04-24 01:09 | disposition home or self-care (01) ==
LOC: MW.ED 22:04
DX: R07.89 Other chest pain (principal); I10 Essential (primary) hypertension; Z79.4 Long term (current) use of insulin; E66.9 Obesity, unspecified; E11.9 Type 2 diabetes mellitus without complications; F17.210 Nicotine dependence, cigarettes, uncomplicated
CPT/HCPCS: 70450; 71010; 80053; 81001; 83605; 84484; 84703; 85025; 85379; 85610; 87040; 93005; 96361; 96374; 96376; 99285; J0360; J7040; 99284